=== PATIENT | male | born 1950 | race Caucasian/White ===

== ENCOUNTER → 2025-06-01 13:38 | Outpatient (CLI) | payer MEDICARE, SELFPAY | LOC: PHYS 13:41 | PROVIDERS: Family Provider Family Medicine; PCP Family Medicine; Referring Provider Family Medicine; Visit Provider Family Medicine | DX: R20.2 Paresthesia of skin (principal) | CPT/HCPCS: 95886; 95910 ==

== ENCOUNTER 2025-08-01 09:51 | Day surgery (SDC) | payer MEDICARE, SELFPAY ==
[2025-07-12 08:47] VITALS: BMI 28.0
[2025-08-01 10:22] VITALS: BP 140/82; PULSE 65; RESP 14; TEMP 36.2; O2SAT 98
--- NOTE | 2025-08-01 10:23 | PM.PREOP ---
Pre-operative Note Interval Note History & Physical reviewed/Exam performed by Physician: Yes Changes to H&P: No
[2025-08-01] MEDS: LACTATED RINGERS 1,000 ML 42 ML IV (10:31)
[2025-08-01] MEDS: ACETAMINOPHEN 325 MG TABLET 975 MG PO (10:33)
--- NOTE | 2025-08-01 11:03 | SUR.OPER ---
Supine on padded OR bed, head on pillow, left arm secured on padded arm boards at <90 degrees abduction,right arm draped free on black padded arm table, legs uncrossed, safety belt at thigh, tape over blanket over lower legs.
[2025-08-01 11:29] VITALS: BP 119/71; PULSE 57; RESP 14; TEMP 36; O2SAT 94
[2025-08-01 11:34] VITALS: BP 127/81; PULSE 52; RESP 16; O2SAT 94
[2025-08-01 11:39] VITALS: BP 128/88; PULSE 67; RESP 16; O2SAT 95
[2025-08-01 11:46] VITALS: BP 131/87; PULSE 58; RESP 14; TEMP 36.1; O2SAT 94
--- NOTE | 2025-08-01 11:58 | PM.OP.1 ---
Operative Date/Time/Diagnoses Date of procedure: 08/01/25 Time of procedure: 11:00 Pre-op diagnosis: Right Carpal Tunnel Syndrom Post-op diagnosis: same Procedure & Clinicians Procedure: Right carpal tunnel release Same procedure(s) as scheduled: Yes Surgeon: Myke Khan Assisted?: Yes Sustainability Purchasing Agent: Josephine Art Anesthesia Type: General Operative Notes Findings: Thickened transverse carpal ligament Closure Type: primary Specimen(s): none sent Applied: none Estimated Blood Loss (mL): 5 Blood products transfused: none Tourniquet time (min): 18 Procedure in detail: Laterality: RIGHT Preoperative diagnosis: Carpal Tunnel Syndrome Procedure performed: Carpal Tunnel Release, Open Postoperative diagnosis: Same Primary Surgeon: Myke Khan MD Secondary Surgeon: RADHA Kennedy Anesthesia: General EBL: 5 ml Tourniquet: 18 minutes @ 250 mmHg Indication For Surgery: Patient presented with signs and symptoms of carpal tunnel syndrome. Conservative treatment did not result in adequate symptom improvement. The risks, benefits, and alternatives were discussed. Risks include pain, bleeding, infection, damage to nearby structures, pillar pain, wound healing complications, thumb weakness, numbness, lack of symptom relief, need for further surgery, DVT, PE, stroke, and . Written consent was obtained. Operative Findings: Thickened transverse carpal ligament was released. No carpal tunnel masses. Procedure in Detail: The patient was met in the pre-operative hold area. Consent was verified and operative extremity was signed. Local anesthesia was injected. The patient then met with anesthesia and was brought back to the operating room. The patient was placed supine on the operating table. Anesthetic was administered. The extremity was then prepped and draped in the usual sterile fashion. A timeout was performed per protocol. All were in agreement and we proceeded. The quality of anesthetic was tested with an adson forceps. A 3cm longitudinal incision was made in line with the ulnar border of the ring finger starting at Carvalho's Cardinal line distally. This was just radial to the hook of the hamate. Sharp dissection was brought down through the palmar fascia. Retractors were placed. The transverse carpal ligament was identified and a knife was used to incise it longitudinally until fat was seen distally in the palm. Long handled Metzenbaum scissors were then used to create a pocket just superficial to the transverse carpal ligament and a retractor was placed. The scissors were then placed deep to the ligament to bluntly separate the contents of the canal from ligament. I then pointed the tips of the scissors ulnarly and completed the release 2 cm into the antebrachial fascia. A freer elevator was used to confirm complete release both proximally and distally. The wound was then irrigated copiously and closed with 4-0 nylon in a horizontal mattress configuration. A sterile bulky dressing was applied. Postoperative Plan: Same day surgery discharge Leave bulky dressing on until follow up No use of operative hand 2 week follow up for suture removal. No manual labor 6 week follow up with anticipated release to full activity Myke Khan MD Complications: none Post-operative Condition: stable Disposition: PACU
[2025-08-01 12:05] VITALS: BP 132/83; PULSE 56; RESP 16; TEMP 36.3; O2SAT 96
== END 2025-08-01 12:28 | disposition home or self-care (01) ==
PROVIDERS: PCP Family Medicine; Referring Provider Orthopaedic Surgery; Visit Provider Orthopaedic Surgery
PROC: (CPT 64721; principal; 2025-08-01 11:45)
DX: G56.01 Carpal tunnel syndrome, right upper limb (principal)
CPT/HCPCS: 64721; J0689; J1100; J2250; J2405; J2704; J3010; J7120